=== PATIENT | male | born 1955 | race African-American/Black ===

== ENCOUNTER → 2017-01-07 | Day surgery (SDC) | payer OTHER ==
[~2017-01-07] VITALS: Ht 172.7 cm; Wt 113.5 kg
[2017-01-07 09:06] LABS: CREATININE 1.2 mg/dL (0.7-1.2); POTASSIUM 4.9 mmol/L (3.5-5.1)
== END | disposition home or self-care (01) ==
LOC: FAS 08:00
PROVIDERS: Anesthesiology
DX: Z12.11 Encounter for screening for malignant neoplasm of colon (principal); D12.6 Benign neoplasm of colon, unspecified; K21.9 Gastro-esophageal reflux disease without esophagitis; E11.9 Type 2 diabetes mellitus without complications; I10 Essential (primary) hypertension; G47.30 Sleep apnea, unspecified; E78.00 Pure hypercholesterolemia, unspecified; E78.5 Hyperlipidemia, unspecified; Z87.442 Personal history of urinary calculi; Z79.899 Other long term (current) drug therapy; Z98.890 Other specified postprocedural states; Z80.0 Family history of malignant neoplasm of digestive organs
CPT/HCPCS: 36415; 80048; 88305; J2704

== ENCOUNTER 2020-09-19 10:37 | Emergency (ER) | payer OTHER ==
[~2020-09-19 10:37] MED LIST: FLOMAX0.4 MG PO; GLUCOTROL10 MG PO; JANUVIA100 MG PO; JARDIANCE10 MG PO; LEXAPRO10 MG PO; LIPITOR 10MG TA10 MG PO; LISINOPRIL20 MG PO; METFORMIN HCL500 MG PO; POTASSIUM CHLO10 MEQ PO; TOPROL XL 50 MG50 MG PO
[2020-09-19 11:43] LABS: BASOPHIL 0.7 % (0-2); BILIRUBIN NEGATIVE (NEGATIVE); BLOOD NEGATIVE Ery/uL (NEGATIVE); CLARITY CLEAR (CLEAR); COLOR YELLOW (YELLOW); EOSINOPHIL 0.5 % (0-7); GLUCOSE (U) 3+ mg/dL (NORMAL); HGB 17.5 g/dl (13.2-18.0); LEUKOCYTES NEGATIVE Leu/uL (NEGATIVE); LYMPHOCYTE 16.7 % (15-48); MCH 28.7 pg (25.0-31.0); MPV 9.7 fL (6.0-9.5); NEUTROPHIL 73.2 % (41-80); NITRITE NEGATIVE (NEGATIVE); NRBC 0; PLT 262 K/uL (150-400); PROTEIN NEGATIVE (NEGATIVE); RDW 14.2 % (11.5-14.0); SPECIFIC GRAVITY 1.025 (1.001-1.030); UROBILINOGEN 0.2 mg/dL (0.2-1.0)
[2020-09-19 11:46] LABS: ALBUMIN 3.7 g/dL (3.4-5.0); BILIRUBIN - TOTAL 0.9 mg/dL (0.2-1.0); BUN/CREAT RATIO (CALC) 22.6 RATIO; CREATININE 1.24 mg/dL (0.67-1.17); GLOBULIN (CALCULATION) 3.6 g/dL; POTASSIUM 3.9 mmol/L (3.5-5.1); TOTAL PROTEIN 7.3 g/dL (6.4-8.2)
== END 2020-09-19 13:20 | disposition home or self-care (01) ==
LOC: FER 10:37
PROVIDERS: Emergency Medicine
DX: S39.011A Strain of muscle, fascia and tendon of abdomen, initial encounter (principal); E11.9 Type 2 diabetes mellitus without complications; I10 Essential (primary) hypertension; Z87.442 Personal history of urinary calculi; X50.0XXA Overexertion from strenuous movement or load, initial encounter; Y92.89 Other specified places as the place of occurrence of the external cause; Y99.0 Civilian activity done for income or pay
CPT/HCPCS: 36415; 80053; 81003; 82150; 83690; 85025; Q9967